=== PATIENT | male | born 1970 | race Two or more races ===

== ENCOUNTER 2024-10-10 10:30 | Outpatient (RCR) | payer MEDICAID, SELFPAY ==
--- NOTE | 2024-10-02 10:16 | PT.OIERPT ---
PT OP Initial Eval Patient Information Outpatient Physical Therapy Treatment Date: 10/02/24 Visit Reasons: NECK PAIN Medical Diagnosis: M48.02 Treatment Dx #1: Decreased B UE strength Treatment Dx #2: neck pain radiation Start of Care: 10/02/24 Date of Onset: 07/07/24 Smoking Status Smoking Status: Never smoker Initial Assessment Subjective: Pt is 53 yr old turkmen speaking male s/p cervical laminectomy C3-C7 levels with fusion 06/2023. He reports pain between the shoulder blades and limits HH chores, the L hand goes numb with gripping and feels weak. He is ambulating with a cane and says he hasn't fallen since the fusion but still ambulates with less coordination that started 3 yrs ago. PMH: none reported Imaging: MRI in EMR pre-op C5-C6 severe spinal stenosis, 6 mm central disc protrusion severely indenting the cervical cord with advanced bilateral neural foraminal stenosis, severe cord compression with likely gliosis at this level Pt goal: to to strengthen L hand and move the head better, Objective: C/S AROM: ? Ext 40% with pain at end-range ? Flexion 75% of full with slight onset of ssx ? L rotation: 50% ? R rotation: 50% ? TTP: moderate of lower T/S paraspinals between scapulae ? 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 Baldwin's reflex: negative Gait: scissoring Decreased digit extension after gripping and motor control of hands Strength of UE's: Elbow flexion: 4/5 ER: 4-/5 ? 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 Pt requires skilled therapy to meet goals and has fair rehab potential. 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 Ind with HEP ? 2. Improved hand coordination to fully open hands ? 3. Decreased TTP of T/S from mod to min ? 4. Increased L hand agricultural and forestry supervisor strength to at least 55 lbs Treatment Plan 1. Manual therapy ? 2. Therex ? 3. Modalities as indicated, estim, moist heat, ice Frequency and Duration: 1-2x a week for 12 visits Certification Dates: 10/02/24 to 12/31/24 Procedure Charges OP PT Eval Mod Complex 30 minutes: Yes
--- NOTE | 2024-10-10 10:52 | PT.ODAYNRPT ---
PT Outpatient Daily Note OP Daily Note Outpatient Physical Therapy Treatment Date: 10/10/24 Visit Reasons: NECK PAIN Subjective: Pt reports neck is doing ok, content with current progress. Objective: Please see flow sheet for ther ex list. Assessment: Pt demonstrates forward head posture, forward rounded shoulders pt educated on maintaining a more upright posture. Plan: Continue with POC. Length of Time (minutes) of Treatment: 30 Minutes Procedure Charges Therapeutic Exercise 30 minutes: Yes
== END 2024-10-14 23:59 | disposition home or self-care (01) ==
LOC: CPTX 10:30
PROVIDERS: PCP Family Medicine; Referring Provider Family Medicine; Visit Provider Family Medicine
DX: M48.02 Spinal stenosis, cervical region (principal); Z98.1 Arthrodesis status
CPT/HCPCS: 97110; 97162

== ENCOUNTER 2024-11-14 09:30 | Outpatient (RCR) | payer MEDICAID, SELFPAY ==
--- NOTE | 2024-10-18 11:25 | PT.ODAYNRPT ---
PT Outpatient Daily Note OP Daily Note Outpatient Physical Therapy Treatment Date: 10/18/24 Visit Reasons: neck pain Subjective: pt. reports slight chest pain prior to start of therapy session, with pain between shoulder blades Objective: see flow sheet for ther-ex Assessment: tolerated exercises well with improvement to UE and neck posture. ther-ex helped decrease pain between shoulder blades. Plan: continue PT per POC Length of Time (minutes) of Treatment: 30 Minutes Procedure Charges Therapeutic Exercise 30 minutes: Yes
--- NOTE | 2024-10-25 10:30 | PT.ODAYNRPT ---
PT Outpatient Daily Note OP Daily Note Outpatient Physical Therapy Treatment Date: 10/25/24 Visit Reasons: neck pain Subjective: Pt reports progress, notices decrease stiffness in neck, shoulders and upper back. Objective: Please see flow sheet for ther ex list. Assessment: Pt demonstrates improved sitting posture indicating progress. Plan: Continue with POC. Length of Time (minutes) of Treatment: 30 Minutes Procedure Charges Therapeutic Exercise 30 minutes: Yes
--- NOTE | 2024-11-01 10:38 | PT.ODAYNRPT ---
PT Outpatient Daily Note OP Daily Note Outpatient Physical Therapy Treatment Date: 11/01/24 Visit Reasons: neck pain Subjective: Pt reports progress with neck and upper body. Objective: Please see flow sheet for ther ex list. Assessment: Progression of interventions completed with muscle fatigue but no pain to report. Plan: Continue with pOC. Length of Time (minutes) of Treatment: 30 Minutes Procedure Charges Therapeutic Exercise 30 minutes: Yes
--- NOTE | 2024-11-14 10:06 | PT.ODAYNRPT ---
PT Outpatient Daily Note OP Daily Note Outpatient Physical Therapy Treatment Date: 11/14/24 Visit Reasons: neck pain Subjective: Pt reports progress, mentioned he posture is improving resulting in decrease tightness in chest. Objective: Please see flow sheet for ther ex list. Assessment: Progressing interventions per post op protocol. Plan: Continue with POC. Length of Time (minutes) of Treatment: 30 Minutes Procedure Charges Therapeutic Exercise 30 minutes: Yes
== END 2024-11-14 23:59 | disposition home or self-care (01) ==
LOC: CPTX 09:30
PROVIDERS: PCP Family Medicine; Referring Provider Family Medicine; Visit Provider Family Medicine
DX: M48.02 Spinal stenosis, cervical region (principal)
CPT/HCPCS: 97110

== ENCOUNTER 2024-12-13 11:00 | Outpatient (RCR) | payer MEDICAID, SELFPAY ==
--- NOTE | 2024-11-22 10:28 | PT.ODAYNRPT ---
PT Outpatient Daily Note OP Daily Note Outpatient Physical Therapy Treatment Date: 11/22/24 Visit Reasons: Neck Pain Subjective: Pt reports some soreness between shoulder blades after last visit Objective: See F/S for therex Assessment: Low tissue irritability with therex today Plan: Continue per POC Length of Time (minutes) of Treatment: 30 Minutes Procedure Charges Therapeutic Exercise 30 minutes: Yes
--- NOTE | 2024-11-28 11:04 | PT.ODAYNRPT ---
PT Outpatient Daily Note OP Daily Note Outpatient Physical Therapy Treatment Date: 11/28/24 Visit Reasons: Neck Pain Subjective: Pt reports neck is doing better. Objective: Please see flow sheet for ther ex list. Assessment: Progressing interventions per pt tolerance. Verbal cues to maintain upright posture during thera band exercises. Plan: Continue with POC. Length of Time (minutes) of Treatment: 30 Minutes Procedure Charges Therapeutic Exercise 30 minutes: Yes
--- NOTE | 2024-12-06 10:38 | PT.ODAYNRPT ---
PT Outpatient Daily Note OP Daily Note Outpatient Physical Therapy Treatment Date: 12/06/24 Visit Reasons: Neck Pain Subjective: Pt reports progress with c/s. Objective: Please see flow sheet for ther ex list. Assessment: Progression of interventions completed with muscle fatigue in scapulothoracic region. Plan: Continue with POC. Length of Time (minutes) of Treatment: 30 Minutes Procedure Charges Therapeutic Exercise 30 minutes: Yes
--- NOTE | 2024-12-13 11:46 | PT.ODAYNRPT ---
PT Outpatient Daily Note OP Daily Note Outpatient Physical Therapy Treatment Date: 12/13/24 Visit Reasons: Neck Pain Subjective: Pt reports neck pain has subsided and continues to perform HEP. Objective: Please see flow sheet for ther ex list. Assessment: Pt demonstrate upper trap recruitment during rows exercise, verbal cues to focus on scapular retraction with tactile cues and avoid upper trap engaging pt complied. Plan: Continue with POC. Length of Time (minutes) of Treatment: 30 Minutes Procedure Charges Therapeutic Exercise 30 minutes: Yes
== END 2024-12-15 23:59 | disposition home or self-care (01) ==
LOC: CPTX 11:00
PROVIDERS: PCP Family Medicine; Referring Provider Family Medicine; Visit Provider Family Medicine
DX: M48.02 Spinal stenosis, cervical region (principal); Z98.1 Arthrodesis status
CPT/HCPCS: 97110

== ENCOUNTER 2025-01-09 11:00 | Outpatient (RCR) | payer MEDICAID, SELFPAY ==
--- NOTE | 2024-12-19 10:28 | PT.ODAYNRPT ---
PT Outpatient Daily Note OP Daily Note Outpatient Physical Therapy Treatment Date: 12/19/24 Visit Reasons: Neck pain Subjective: Pt reports compliance with HEP, feels symptoms are improving. Objective: Please see flow sheet for ther ex list. Assessment: Pt instructed on door pec stretch exercise within tolerance, pt c/o minimal soreness. Plan: Continue with POC. Pt has 2 visits left. Length of Time (minutes) of Treatment: 30 Minutes Procedure Charges Therapeutic Exercise 30 minutes: Yes
--- NOTE | 2024-12-26 14:48 | PT.ODAYNRPT ---
PT Outpatient Daily Note OP Daily Note Outpatient Physical Therapy Treatment Date: 12/26/24 Visit Reasons: Neck pain Subjective: Pt reports some soreness between shoulder blades after last visit Objective: See F/S for therex Assessment: Low tissue irritability with therex today Plan: Continue per POC Length of Time (minutes) of Treatment: 30 Minutes Procedure Charges Therapeutic Exercise 30 minutes: Yes
--- NOTE | 2025-01-09 13:11 | PTNOTE_ITS ---
PT OP Progress/Discharge Note Date of Service: 01/09/25 Progress Note/DC Note Progress Note/Discharge Note: Progress Note Patient Information Visit Reasons: Neck pain Service Continue Service or Discharge: Continue Service Status Subjective: Overall better since starting therapy with less neck pain and improved hand strength to hold coffee mug. He wants to continue to reduce stiffness in B UE's. 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 Gait: scissoring C/S AROM: L rotation: 50% R rotation: 50% of full Assessment: Pt attended 12/ Rx sessions with good progress to meet goals. Pt met the hotel front office manager strength goal of L hand of at least 55 lbs and can open hands fully. Pt has decreased TTP of T/S from mod to min and he is independent with HEP. He would benefit from continued therapy to decreased stiffness in B shoulders and improve ROM to full shoulder AROM into FF and abduction. Plan: Request additional visits x6 to progress toward goals. Extend POC certification dates to 02/28/25. Procedure Charges Therapeutic Exercise 30 minutes: Yes
== END 2025-01-12 23:59 | disposition home or self-care (01) ==
LOC: CPTX 11:00
PROVIDERS: PCP Family Medicine; Referring Provider Family Medicine; Visit Provider Family Medicine
DX: M48.02 Spinal stenosis, cervical region (principal); Z98.1 Arthrodesis status
CPT/HCPCS: 97110